=== PATIENT | male | born 1980 | race Caucasian/White ===

== ENCOUNTER 2017-02-10 10:13 | Emergency (ER) | payer BC ==
[~2017-02-10] VITALS: Ht 175.3 cm; Wt 94.8 kg
[~2017-02-10 10:13] MED LIST: NOHOMEMEDS; TOBREX5 ML LEFT EYE
[2017-02-10 12:08] LABS: HEMATOCRIT 44.2 % (38.0-50.0); MCH 34.2 PG (29.0-34.0); MCV 95.1 FL (86-99); MEAN PLAT.VOLUME 8.7 uM^3 (9.0-12.4); PLATELET COUNT 380 K/uL (156-360); RBC DIS.WIDTH-CV 12.1 % (11.8-14.6); RBC DIS.WIDTH-SD 41.9 % (39-53); RED BLOOD COUNT 4.65 M/uL (4.00-5.50); WHITE BLOOD COUNT 7.4 K/uL (4.1-10.2)
[2017-02-10 12:21] LABS: CHLORIDE 106 mEq/L (99-109); POTASSIUM 4.9 mEq/L (3.7-5.4); SODIUM 141 mEq/L (136-147)
[2017-02-10 12:23] LABS: GLUCOSE 109 mg/dL (70-99)
[2017-02-10 12:24] LABS: ANION GAP 7 MEQ/L (2-14)
[2017-02-10 12:27] LABS: GFR ESTIMATE (CALCULATED) > 59 mL/min/; UREA NITROGEN (BUN) 10 mg/dL (9-23)
[2017-02-10 14:31] VITALS: BP 132/97
== END 2017-02-10 14:31 | disposition home or self-care (01) ==
LOC: EME 10:13
DX: K92.1 Melena (principal); Z87.891 Personal history of nicotine dependence
CPT/HCPCS: 80048; 85027; 86850; 86900; 86901; 99281; 99284